=== PATIENT | male | born 2000 | race Two or more races ===

== ENCOUNTER 2024-12-02 12:34 | Emergency (ER) | payer SELFPAY | END 2024-12-02 14:10 | disposition home or self-care (01) | LOC: MW.ED 12:34 | DX: L60.0 Ingrowing nail (principal); L08.9 Local infection of the skin and subcutaneous tissue, unspecified; Z88.0 Allergy status to penicillin; Z79.899 Other long term (current) drug therapy | CPT/HCPCS: 99283 ==